=== PATIENT | female | born 1980 | race Caucasian/White ===

== ENCOUNTER → 2017-07-31 | Day surgery (SDC) | payer OTHER ==
--- NOTE | 2017-07-29 08:37 | MH ---
cc: Jose Angel Regalado MD DATE OF ADMISSION: 07/31/2017 INDICATION: Chronic sinusitis. HISTORY OF PRESENT ILLNESS: This is a 37-year-old female with chronic recurrent sinusitis. Mikey has recurrent sinus disease with left polypoid disease, obstruction of the maxillary and ethmoid sinus. She has failed medical therapy. She is to undergo polypectomy and left sinusotomies. PAST MEDICAL HISTORY: Significant for previous sinus surgery, chronic sinusitis. ALLERGIES: NO KNOWN DRUG ALLERGIES. MEDICATIONS: Fluticasone nasal spray. PHYSICAL EXAMINATION: GENERAL: Well-developed, well-nourished female, in no apparent distress. HEENT: Normocephalic and atraumatic. Extraocular motions intact. External ear canals clear. Lips, oral mucosa and oropharynx show no lesion. The nasal exam does confirm polypoid disease in the left nasal cavity. The right is clear. CHEST: Clear to auscultation. HEART: Regular rate. ABDOMEN: Soft. EXTREMITIES: No lesions. NEUROLOGIC: Nonfocal. ASSESSMENT AND PLAN: A 37-year-old female with chronic sinusitis on the left with recurrent polypoid disease. She is to undergo polypectomies, maxillary and ethmoid sinusotomy. The risks and benefits were discussed with the patient. The risks include, but not limited to those of anesthesia, bleeding, unfavorable scarring, CSF leak, meningitis, brain abscess, double vision, vision loss, blindness, anosmia, septal perforation, epistaxis. The patient states she understands and accepts the risks of the procedure. Jose Angel Regalado MD JPM/TL , 08:01 AM , 08:35 AM
[~2017-07-31] VITALS: Ht 161.3 cm; Wt 69.6 kg
[~2017-07-31] MED LIST: ACETAMINOPHEN 1000 MG/100 ML 100 ML IV ONE; ACETAMINOPHEN/HYDROcodone 325 MG/5 MG TAB PO PRN; CHLORHEXIDINE GLUCONATE 2 % 1 PACK (2 CLOTHS) TOPICAL PRN; DEXAMETHASONE SOD PHOS 4 MG/ML VIAL IV ONE; DO NOT ADM ANY ANTICOAGULANT DRUGS PRN; EPINEPHrine HCL (1:1000) 30 MG/30 ML VIAL ONE; FAMOTIDINE 20 MG/2 ML VIAL ONE; KETOROLAC TROMETHAMINE 30 MG/ML (IVP) VIAL IV PUSH ONE; LACTATED RINGER'S 1000 ML IV PRN; LIDOCAINE 1%/EPINEPHrine 1:100,000 SOLN 30 ML VIAL ONE; LIDOCAINE HCL 1% PF 5 ML SYRINGE OTHER ONE; METOPROLOL TARTRATE 25 MG TAB PO PRN; MIDAZOLAM HCL 2 MG/2 ML VIAL ONE; MORPHINE SULFATE 4 MG/ML INJ IV PRN; ONDANSETRON HCL 4 MG/2 ML VIAL IV ONE; ONDANSETRON HCL 4 MG/2 ML VIAL IV PUSH PRN; POVIDONE IODINE 5% (ANTISEPSIS KIT) 4 APPLICATIONS EACH NARE PRN; PROPOFOL 200 MG/20 ML AMP IV ONE; ROCURONIUM INJ 50 MG/5 ML SYRINGE IV PUSH ONE; SODIUM CHLORID 0.9% 500 ML IV PRN; SODIUM CHLORIDE 0.9% 20 ML VIAL IV ONE; SUGAMMADEX SODIUM 200 MG/2 ML VIAL IV PUSH ONE
[2017-07-31 06:47] LABS: AUTOMATED NEUTROPHIL # 6.5 TH/MM3 (1.8-7.7); BASOPHIL % 0.4 % (0.0-2.0); EOSINOPHIL # 0.3 TH/MM3 (0-0.4); EOSINOPHIL % 3.1 % (0.0-4.0); HEMATOCRIT 39.6 % (35.0-46.0); HEMOGLOBIN 13.6 GM/DL (11.6-15.3); LYMPH % 19.1 % (9.0-44.0); LYMPHOCYTE # 1.8 TH/MM3 (1.0-4.8); MEAN CELL VOLUME 93.6 FL (80.0-100.0); MEAN CORPUSCULAR HEMOGLOBIN 32.1 PG (27.0-34.0); MEAN CORPUSCULAR HGB CONC 34.3 % (32.0-36.0); MEAN PLATELET VOLUME 7.7 FL (7.0-11.0); MONO % 9.3 % (0.0-8.0); MONOCYTE # 0.9 TH/MM3 (0-0.9); NEUT % 68.1 % (16.0-70.0); PLATELET COUNT 270 TH/MM3 (150-450); RED BLOOD COUNT 4.23 MIL/MM3 (4.00-5.30); RED CELL DISTRIBUTION WIDTH 12.6 % (11.6-17.2); WHITE BLOOD COUNT 9.5 TH/MM3 (4.0-11.0)
--- NOTE | 2017-07-31 09:02 | MP ---
cc: Jose Angel Regalado MD DATE OF OPERATION: 07/31/2017 INDICATION FOR PROCEDURE: This is a 37-year-old female with chronic sinusitis, nasal obstruction. 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 She has complete obstruction, failed medical therapy. She is to undergo left polypectomy, anterior ethmoidectomy and maxillary sinusotomy with removal of the soft tissue. PREOPERATIVE DIAGNOSES: Chronic sinusitis, nasal obstruction, nasal polyps. POSTOPERATIVE DIAGNOSES: Chronic sinusitis, nasal obstruction, nasal polyps. PROCEDURE PERFORMED: Left endoscopic maxillary sinusotomy with removal of soft tissue, left endoscopic anterior ethmoidectomy, and left removal of the severe nasal polyps under general anesthesia. DESCRIPTION OF PROCEDURE: The patient was brought to the operating room and placed in supine position, successfully placed under general anesthesia, prepared in the usual fashion for this procedure. Nose was first decongested topically with adrenaline sponges at 1:1000 and infiltrated with 1% Xylocaine with epinephrine 1:100,000. Packing was removed. Attention was turned to the nasal cavity. Multiple biopsies of polypoid tissue were taken and then with the microdebrider, a polypectomy was completed from anterior to posterior under endoscopic guidance and the nasal cavity was completely cleared back to the posterior cavity. Bleeding was minimal. An adrenaline soaked sponge was placed. This was again removed. The maxillary sinus ostia was identified. With curved suction, polypoid tissue was rolled from the maxillary sinus and again biopsies were completed here. Then with the microdebrider, polypoid tissue was removed from the area of the maxillary ostia, reopening this and going into the maxillary sinus. Soft tissue was removed here, completing endoscopic maxillary sinusotomy under the 0 and 30-degree endoscope. Attention was then turned to the area of the anterior ethmoid, polypoid disease was followed back. There was some scarring. The anterior ethmoid bulla was reopened, completing endoscopic ethmoidectomy. The patient was suctioned. Hemostasis had been obtained. A NasoPore pack was placed. She was awakened, extubated, and taken to the recovery in stable condition. MD JOSÉ LUIS Feilds/AMANDA , 08:43 AM , 09:01 AM
[2017-07-31 09:51] VITALS: BP 121/81; PULSE 75; RESP 20; TEMP 98.4; O2SAT 100
== END | disposition home or self-care (01) ==
LOC: HSDC 05:37
PROVIDERS: ATTEND Specialist
DX: J32.9 Chronic sinusitis, unspecified (principal); J33.8 Other polyp of sinus; Z01.818 Encounter for other preprocedural examination
CPT/HCPCS: 00160; 31254; 31267; 85025; 88305; J0131; J0171; J1100; J1885; J2250; J2405; J3010; J7120; 88304